=== PATIENT | female | born 1990 | race Caucasian/White ===

== ENCOUNTER 2022-01-09 17:00 | Inpatient (IN) | payer BC ==
[~2022-01-09] VITALS: Ht 160 cm; Wt 66.7 kg
--- NOTE | 2022-01-10 07:51 | PR ---
[facility] [address] [place], [place] [address] Signed PP Progress Notes Datetime Report Generated by CRISTINE: 01/10/2022 07:51 SUBJECTIVE: [id number] Pain: Within Normal Limits Nausea/Vomiting: Denies Flatus: Yes Bowel Movement: No Vital Signs: [id number] Vital Signs: Reviewed; Within Normal Limits Cardiovascular: Normal Respiratory: Normal Abdomen/Uterus: Normal Lochia: Normal Vulva/Perineum: Normal Breasts: Normal Extremities: Normal Progress: Normal Exam Comments: General: NAD, sitting in bed skin to skin with baby Resp: no dyspnea/ retractions CV: RRR Abd: SNTND, FFBU Perineum: right labia with small (1cm) hematoma, soft, non-expanding Ext: trace edema IMPRESSION/PLAN/PROCEDURES: [id number] Impression: Normal Progression Plan: Continue Present Management; Discharge Progress Notes: Pt is a 31 yo PPD#1 s/p -progressing well . Ambulating, voiding, tolerating regular diet. Lochia moderate. Requesting DC to home at 24h -uncertain re: contraception, considering copper IUD - well Vulvar hematoma - stable, soft, non-expanding Rh negative - baby blood type A neg H/o anemia, resolved by 36 weeks. Hgb 11.4 from 13.4 on admission Anxiety/ depression: stable on zoloft 100mg po daily. Reviewed PPD precautions Anticipate DC to home at 24h if mother chooses AND baby cleared by peds, otherwise stay one more night and DC tomorrow *Electronically Signed* 01/10/22 0751 DONAL STANTON DO PATIENT NAME: NAJMA MCKEON PROGRESS NOTE DATE OF : 89 PHYSICIAN: DONAL STANTON DO RPT #: [id number] REPORT IS CONFIDENTIAL AND NOT TO BE RELEASED WITHOUT AUTHORIZATION [address] [place] [address] Signed Signing Physician: Donal Stanton DO Copies: ~ *Electronically Signed* 01/10/22 0751 DONAL STANTON DO PATIENT NAME: NAJMA MCKEON PROGRESS NOTE DATE OF : 91 PHYSICIAN: DONAL STANTON DO RPT #: [id number] REPORT IS CONFIDENTIAL AND NOT TO BE RELEASED WITHOUT AUTHORIZATION
--- NOTE | 2022-01-11 12:23 | PR ---
[facility] [address] [facility] [place], [place] [address] Signed PP Progress Notes Datetime Report Generated by CPN: 01/11/2022 12:23 SUBJECTIVE: [id number] Pain: Within Normal Limits Nausea/Vomiting: Denies Flatus: Yes Bowel Movement: No Vital Signs: [id number] Vital Signs: Reviewed; Within Normal Limits EXAM: Ongoing Cardiovascular: Normal Respiratory: Normal Abdomen/Uterus: Normal Lochia: Normal Vulva/Perineum: Normal Breasts: Normal Extremities: Normal Progress: Normal Exam Comments: NAD RRR No dyspnea/ retractions Abd SNTND Ext: no edema IMPRESSION/PLAN/PROCEDURES: [id number] Impression: Normal Progression Plan: Continue Present Management; Discharge Progress Notes: 31 yo PPD#2 s/p -progressing well -milestones met -baby currently under bili lights -anticipate DC to home today Signing Physician: Donal Stanton DO Copies: ~ *Electronically Signed* 01/11/22 1223 DONAL STANTON DO PATIENT NAME: NAJMA MCKEON PROGRESS NOTE DATE OF : 91 PHYSICIAN: DONAL STANTON DO RPT #: [id number] REPORT IS CONFIDENTIAL AND NOT TO BE RELEASED WITHOUT AUTHORIZATION
== END 2022-01-11 18:09 | disposition home or self-care (01) | DRG 806 ==
LOC: FBCO 17:00 → FBC 17:10
PROVIDERS: ADMIT Obstetrics & Gynecology; ATTEND Obstetrics & Gynecology
PROC: 10E0XZZ Delivery of Products of Conception, External Approach (ICD-10-PCS; principal; 2022-01-09)
PROC: 0HQ9XZZ Repair Perineum Skin, External Approach (ICD-10-PCS; 2022-01-09)
DX: O99.02 Anemia complicating childbirth (principal); O71.7 Obstetric hematoma of pelvis; Z37.0 Single live birth; O99.344 Other mental disorders complicating childbirth; F41.9 Anxiety disorder, unspecified; F32.A Depression, unspecified; O70.0 First degree perineal laceration during delivery; O69.1XX0 Labor and delivery complicated by cord around neck, with compression, not applicable or unspecified; Z20.822 Contact with and (suspected) exposure to COVID-19; Z79.899 Other long term (current) drug therapy; Z3A.39 39 weeks gestation of pregnancy; Z67.11 Type A blood, Rh negative
CPT/HCPCS: 36415; 83030; 85027; 86850; 86870; 86900; 86901; A9270; J1170; J2590; J2790

== ENCOUNTER 2022-10-08 11:14 | Emergency (ER) | payer OTHER, BC ==
[~2022-10-08] VITALS: Ht 152.4 cm; Wt 66.7 kg
[2022-10-08] MEDS ORDERED: SERTRALINE HCL100 MG PO (11:34)
[2022-10-08] MEDS ORDERED: LEVOTHYROXINE112 MCG PO (11:34)
[2022-10-08 12:06] VITALS: BP 114/86
== END 2022-10-08 12:06 | disposition home or self-care (01) ==
LOC: ED 11:14
DX: S61.230A Puncture wound without foreign body of right index finger without damage to nail, initial encounter (principal); W46.0XXA Contact with hypodermic needle, initial encounter; E03.9 Hypothyroidism, unspecified; Z79.899 Other long term (current) drug therapy
CPT/HCPCS: 36415; 84460; 86706; 86707; 86803; 87350; 99283